=== PATIENT | male | born 1990 | race Caucasian/White ===

== ENCOUNTER 2018-08-04 18:53 | Emergency (ER) | payer SELFPAY ==
[~2018-08-04] VITALS: Ht 177.8 cm; Wt 165.0 kg
[2018-08-04 19:18] LABS: GLUCOSE,POINT OF CARE 214 MG/DL (70-110)
[2018-08-04 19:20] VITALS: BP 168/113
[2018-08-04] MEDS ORDERED: LORA1TAB3 PO (19:40)
[2018-08-04] MEDS ORDERED: GABA-529 PO (19:40)
[2018-08-04] MEDS ORDERED: METO5TAB95 PO (19:40)
[2018-08-04] MEDS ORDERED: PROM25 PO (19:40)
[2018-08-04] MEDS ORDERED: INSU100V SQ (19:40)
== END 2018-08-04 20:52 | disposition left against medical advice (07) ==
LOC: EMS 18:57
DX: R10.13 Epigastric pain (principal); F12.988 Cannabis use, unspecified with other cannabis-induced disorder; R11.10 Vomiting, unspecified; F41.9 Anxiety disorder, unspecified; E11.9 Type 2 diabetes mellitus without complications; Z88.5 Allergy status to narcotic agent; Z79.4 Long term (current) use of insulin